=== PATIENT | female | born 1985 | race Caucasian/White ===

== ENCOUNTER 2019-04-29 03:00 | Emergency (ER) | payer MEDICAID, SELFPAY ==
[2019-04-29 03:01] VITALS: BP 153/88; PULSE 118; RESP 15; TEMP 36.7; O2SAT 100; BMI 41.1
[2019-04-29 04:01] LABS: Absolute Lymphocyte Count 1.89 X10^3/uL (0.83-4.51); Absolute Neutrophil Count 3.2 X10^3/uL (2.0-7.7); Basophil# 0.03 X10^3/uL; Basophil% 0.5 % (0-1); Eosinophil# 0.26 X10^3/uL; Eosinophils% 4.5 % (0-5); Hematocrit 37.7 % (37-47); Hemoglobin 11.8 g/dL (12.0-15.0); Lymphocyte # 1.89 X10^3/ul (4.0); Lymphocyte % 32.9 % (19-41); Mean Corp Hgb Conc 31.3 g/dL (32-36); Mean Corpuscular Hgb 27.4 pg (27.0-32.0); Mean Corpuscular Volume 87.7 fL (81-99); Mean Platelet Vol. 9.3 fl (6.2-12.0); Monocyte# 0.36 X10^3/uL; Monocyte% 6.3 % (0-10); NRBC Flagged by Analyzer 0 % (0-5); Neutrophil # 3.19 X10^3/uL (2.7-7.7); Neutrophil % 55.5 % (47-70); Platelet Count 223 K/mm3 (150-450); RBC Distribution Width CV 12.3 % (11.6-14.6); RBC Distribution Width SD 39.8 fl (35.1-43.9); White Blood Count 5.8 K/mm3 (4.4-11.0)
[2019-04-29 04:10] LABS: Anion Gap 3 (5-15); BUN 14 mg/dL (7-18); BUN/Creat Ratio 18.9 RATIO (10-20); Calcium,Total 8.7 mg/dL (8.5-10.1); Chloride 104 mmol/L (98-107); Creatinine, Serum 0.74 mg/dL (0.55-1.02); EST Glomerular Filtration Rate 95 mL/min (>60); Est Glom Filt Rate - Afr Amer 114 mL/min (>60); Estimated Creatinine Clearance 91.63 ml/min; Glucose 93 mg/dL (74-106); Potassium 3.6 mmol/L (3.5-5.1); Sodium Level 139 mmol/L (136-145)
[2019-04-29] MEDS: 0.9% Normal Saline 1,000 ML 150 ML IV (04:11)
[2019-04-29 04:18] LABS: Lactic Acid 1.1 mmol/L (0.4-2.0)
--- NOTE | 2019-04-29 04:23 | ED.VISSUMM ---
- ER Visit Summary Date of Service: 04/29/19 Chief Complaint: [Redness and swelling to both legs] History of Present Illness: The patient is a 33 F [presents to the emergency department with complaint of some swelling in her legs for the last 3 days. This morning she woke up to go to work and noted that she had burning sensation to her skin and her legs were erythematous. Patient denies any fever or chills. She denies any sweats. She does not have a history of cellulitis. She denies any trauma to her lower extremity's. She denies recent travel or surgery. She is not on any control.] Physical Examination: [HEENT-PERRLA, EOMI. Cranial nerves II through XII grossly intact. TMs clear. Mucous membranes moist. No adenopathy. Cardiovascular-regular rate and rhythm without murmur or ectopy Lungs-clear to auscultation, chest wall stable without crepitus or subcu emphysema Abdomen-normoactive bowel sounds, soft, nontender, no rebound or rigidity, no peritoneal signs. Extremities-intact ?4, normal range of motion, normal pulses, atraumatic. Bilateral lower extremities-patient has faint erythema to both lower extremities below the knee to about the foot and ankle. Slight tenderness to the skin on palpation. Trace pretibial edema bilaterally. Negative Homans sign bilaterally. No rubs or cords palpated. She is neurovascular intact.] Test Results: [CBC with differential obtained showed a normal white count of 5.8, hemoglobin 11.8, hematocrit 38, placed 223. Chemistries were normal. Lactate was 1.1. Blood cultures ordered and pending.] Emergency Department Course and Treatment: [She was treated with clindamycin 900 mg IV.] Treatment Plan: [She will be treated with clindamycin. Patient advised to use ibuprofen for discomfort. Patient to follow-up with her primary care physician within the next 3 to 5 days. Patient advised to return if increased redness, fever, increased pain, or conditions worsen anyway.] Disposition: [Discharged home in stable condition] Impression: [Cellulitis bilateral lower extremities] This note was generated with Dr. Jerry's Sm[employer] dictation software. It may contain incorrect words, spelling, and punctuation that were not noted in review of the chart prior to signing ED Disposition - Plan for ED Patient: Referrals: Baldev Snyder DO [Primary Care Provider] -
--- NOTE | 2019-04-29 04:25 | ED.DEP ---
ED Disposition - Plan for ED Patient: Instructions: Cellulitis Prescriptions: Clindamycin HCl [Cleocin] 300 mg PO Q6H #40 cap Prescription Printed Referrals: Baldev Snyder DO [Primary Care Provider] - 3-5 Days
[2019-04-29] MEDS: Ketorolac 30 MG/ML Syringe IV (04:45)
[2019-04-29 05:40] VITALS: BP 149/87; PULSE 78; RESP 18; O2SAT 97
== END 2019-04-29 05:41 | disposition home or self-care (01) ==
PROVIDERS: Emergency Provider Emergency Medicine; Family Provider Student in an Organized Health Care Education/Training Program; PCP Student in an Organized Health Care Education/Training Program
DX: L03.116 Cellulitis of left lower limb (principal); L03.115 Cellulitis of right lower limb
CPT/HCPCS: 80048; 83605; 85025; 87040; 96365; 96375; 99283; J7030; A4216

== ENCOUNTER 2023-08-03 17:04 | Emergency (ER) | payer MEDICAID, SELFPAY ==
[2023-08-03 17:06] VITALS: BP 158/95; PULSE 100; RESP 20; TEMP 36.9; O2SAT 98; BMI 44.1
--- OUTSIDE RECORDS SUMMARY | 2023-08-03 20:17 | XMS RPT_ITS | CCD ---
Author Name Unknown Address [address] [place] [address] Organization [facility] Care Team Providers Care Field Hauler Name Role Phone JESUS SYLVESTER (FRANCHESCA) Unavailable JESUS Gagnon (FRANCHESCA) Unavailable UnavailKash Cavanaugh Unavailable Unavailable Allergies Allergy Classification Reported Allergen(s) Allergy Type Date of Onset Reaction(s) Facility (1 source) sulfamethoxazole ; Translations: [SULFAMETHOXAZOL E] Drug Allergy 04-27-2013 [facility] Repository (1 source) traMADol; Translations: [TRAMADOL HCL] Drug Allergy 06-02-2012 [facility] Repository Problems Active Problems Problem Classification Problem Date Documented Da te Episodic/Chronic Malaise and fatigue (1 source) Other fatigue; Translations: [Other fatigue] Onset: 11-24-2017 Episodic Other connective tissue disease (1 source) Other specified soft tissue disorders; Translations: [Other specified soft tissue disorders] Onset: 11-24-2017 Episodic Unclassified (1 source) Unknown / UNK(Unknown) Onset: 02-09-2017 Past or Other Problems Problem Classification Problem Date Documented Da te Episodic/Chronic Unclassified (1 source) FOLLOW UP Onset: 02-09-2017 Results Test Name Value Interpretation Reference Range Facil ity Encounters Encounter Date Encounter Type Care Provider Facility Start: 11-24-2017 Ambulatory JESUS (FRANCHESCA) [facility] Start: 11-24-2017 End: 11-25-2017 Ambulatory JESUS (FRANCHESCA) [facility] Start: 02-09-2017 Ambulatory Kash Stout Facilit y:[facility] Payers Date Payer Category Payer Policy ID Self-pay Summary Purpose Family History No Family History Records FoundNo Family History Records Found Advance Directives No Advanced Directives Records FoundNo Advanced Directives Records Found Additional Source Comments INFORMATION SOURCE (unrecogn ized section and content) DATE CREATED AUTHOR AUTHOR'S ANMOL POLLACK 12/28/2017 [facility] gretchenlili [place] FOR RECORDS PERTAINING TO PATIENTS WHO ARE OR HAVE BEEN ENROLLED IN A CHEMICAL DEPENDENCY/SUBSTANCEABUSE PROGRAM, SOME INFORMATION MAY BE OMITTED. This clinical summary was aggregated from multiple sources. Caution should be exercised in using it in the provision of clinical care. This summary normalizes information from multiple sources, and as a consequence, information in this document may materially change the coding, format and clinical context of patient data. In addition, data may be omitted in some cases. CLINICAL DECISIONS SHOULD BE BASED ON THE PRIMARY CLINICAL RECORDS. [facility]. provides no warranty or guarantee of the accuracy or completeness of information in this document.
[2023-08-03] MEDS: Amox/Clavulanate 875 MG Tablet PO (20:22)
[2023-08-03] MEDS: HYDROcodone Bitartrate/Apap 5/325 Tablet PO (20:22)
--- NOTE | 2023-08-03 20:26 | EDS_ITS ---
HPI History of Present Illness Chief Complaint: Dental Informant: patient Narrative Narrative: Worsening dental pain since yesterday with sensitivities. Facial swelling. No fevers. States had a root canal in that area in the past however since then has had upper teeth extractions. She cannot tell me when. Currently does not have a dentist. No penicillin allergy. Ibuprofen to take without any relief. Has tolerated [place] in the past. Prior similar symptoms: Yes PFSH PFSH Home Medications amoxicillin 875 mg-potassium clavulanate 125 mg tablet 875 mg (0.875 x 875-125 mg) PO Q12H #20 TABLETS 08/03/23 [Rx Last Taken Unknown] hydrocodone-acetaminophen 5-325mg 5mg-325mg 1 tab PO Q6H PRN PRN Pain 3 days #10 TABLETS 08/03/23 [Rx Last Taken Unknown] Allergy/AdvReac Type Severity Reaction Status Date / Time sulfamethoxazole Allergy Hives Verified 08/03/23 17:06 [From Bactrim] tramadol Allergy Shortness Verified 08/03/23 17:06 of breath trimethoprim [From Bactrim] Allergy Hives Verified 08/03/23 17:06 Social History Smoking Status: Never smoker ROS ROS ED Constitutional Constitutional ED: Denies chills, fever(s) or sweats Eyes Eyes: Denies change in vision ENT ENT ED: Reports other Details: Dental pain with facial swelling. ; Denies dysphagia or sore throat Cardiovascular Cardiovascular: Denies chest pain, leg edema, palpitations or racing heartbeat Respiratory/Chest Respiratory/Chest: Denies cough, dyspnea or dyspnea on exertion Gastrointestinal Gastrointestinal: Denies abdominal pain, diarrhea, nausea or vomiting Genitourinary Genitourinary ED: Denies dysuria, hematuria or urinary frequency Musculoskeletal Musculoskeletal: Denies back pain, extremity pain or neck pain Integumentary Denies rash or wounds Neurologic Neurologic: Denies headache(s), paresthesias or weakness EXAM Physical Exam Const Vital Signs: 08/03/23 17:06 Temperature 98.5 F Temperature Source Temporal Pulse Rate 100 Respiratory Rate 20 H Blood Pressure 158/95 H Blood Pressure Mean 116 Pulse Ox 98 Oxygen Delivery Method Room Air Positive well nourished and well developed General Appearance ED: well developed and NAD HEENT Reports moist mucous membranes HEENT Narrative: Extracted upper tooth, gumline tooth #3 there is DKA into the gumline from a tooth. There was swelling noted in the cheek however no fluctuance. Swelling under the eye with no erythema. No proptosis or entrapment. Airway patent. No trismus. normocephalic and atraumatic Eyes PERRL, EOMs intact bilaterally and conjunctivae normal General Eye ED: Yes normal appearance of both eyes Neck no lymphadenopathy and supple General: Negative for tenderness Chest Wall Chest: Negative for tenderness Resp normal respiratory effort and normal air movement Effort and Inspection: symmetric chest movement; Negative for respiratory d istress Cardio regular rate, regular rhythm and no murmurs Peripheral Pulses: pulses 2+ throughout GI normal to inspection, nondistended, normoactive bowel sounds and non-tender Palpation: Negative for guarding or rebound tenderness present Back/Spine no CVA tenderness and no thoracic nor lumbar tenderness Extremity normal to inspection General Extremety ED: Negative for edema or tenderness General Extremity: Negative for edema Neuro oriented x3 and no sensory deficits noted Sensorium / Orientation: awake and alert Skin no rashes or lesions noted and no wounds MDM MDM MDM Narrative Medical decision making narrative: Interventions / MDM: Differential diagnosis: Dental cavity, facial swelling Diagnosis considered but do not suspect: No clinical fluctuance for concerns for abscess My EKG interpretation: N/A Imaging independently reviewed and interpreted by myself: N/A External documents reviewed: N/A Test considered but not ordered:N/A ED course: Afebrile nontoxic vital signs stable. Due to facial swelling, started on Augmentin. [place] given for send control. Should continue ibuprofen. Short course of pain medicines and antibiotics. Dental list given for follow- up for definitive treatment. All questions were answered. Re-evaluation: stable Disposition discussed with patient/family/significant other: Patient Case discussed with consulting clinician: N/A This note was generated with [employer] dictation software. It may contain incorrect words, spelling, and punctuation that were not noted in checking the note before signing. Discharge Plan Triage Chief Complaint: Dental ED Provider: Milton Hahn Dx/Rx/DC Orders Clinical Impression: Facial swelling, Dental infection Instructions: ED Dental Pain Prescriptions: New hydrocodone-acetaminophen [hydrocodone-acetaminophen] 5-325 mg tablet 1 tab PO Q6H PRN PRN (Reason: Pain) 3 Days Qty: 10 0RF amoxicillin-pot clavulanate [amoxicillin-pot clavulanate] 875-125 mg tablet 875 mg PO Q12H Qty: 20 0RF Primary Care Provider: Care Physician,No Primary Referrals: Care Physician,No Primary [Primary Care Provider] - Activity Restrictions/Additional Instructions: Take antibiotic as prescribed. Continue Motrin 600 mg every 6 hours. Use additional pain medicine as needed. Follow-up with dentist for definitive treatment. Disposition Disposition: Home, Self Care Discharge Date/Time: 08/03/23 20:34
== END 2023-08-03 20:34 | disposition home or self-care (01) ==
PROVIDERS: Emergency Provider Emergency Medicine; Visit Provider Emergency Medicine
DX: K04.7 Periapical abscess without sinus (principal)
CPT/HCPCS: 99283

== ENCOUNTER 2024-09-23 11:39 | Emergency (ER) | payer SELFPAY ==
[2024-09-23 11:40] VITALS: BP 160/94; PULSE 76; RESP 15; TEMP 36.4; O2SAT 100; BMI 38.9
[2024-09-23] MEDS: Ondansetron 4 MG/2 ML Vial IV (12:07)
[2024-09-23] MEDS: 0.9% Normal Saline (1000mL) 1,000 ML 999 ML IV (12:07)
[2024-09-23] MEDS: Morphine 4 MG/ML Syringe IV (12:07)
[2024-09-23 12:44] VITALS: BP 159/88; PULSE 67; RESP 14; TEMP 36.1; O2SAT 98
[2024-09-23] MEDS: Clindamycin 600 MG/50 ML BAG 100 MG IV (12:53)
[2024-09-23 13:00] VITALS: BP 161/90; PULSE 70; RESP 14; TEMP 36.6; O2SAT 98
--- NOTE | 2024-09-23 13:19 | EX.ED.DYSGE1 ---
HPI History of Present Illness Chief Complaint: Dental Narrative Narrative: Patient is a 39-year-old female with no known significant past medical history who presented to the emergency department the chief complaint of dental pain. Patient states that she did a telehealth visit on and they prescribed her Augmentin and ibuprofen. She states that she started taking the antibiotics late Tuesday night morning and feels like the pain has not gotten any better therefore she came here for further evaluation management. Patient states that she has been unable to sleep secondary to the pain. Patient states that she is swallowing without any difficulty. PFSH PFSH Home Medications ?Medication ?Instructions ?Recorded ?Last Taken ?Type amoxicillin 875 mg-potassium 875 mg PO Q12H #20 TABLETS 08/03/23 Unknown Rx clavulanate 125 mg tablet hydrocodone-acetaminophen 5-325mg 1 tab PO Q6H PRN PRN Pain 3 days 08/03/23 Unknown Rx 5mg-325mg #10 TABLETS clindamycin HCl 300 mg capsule 300 mg PO TID 7 days #21 caps 09/23/24 Unknown Rx ondansetron 4 mg disintegrating 4 mg PO Q6H PRN nausea and 09/23/24 Unknown Rx tablet vomiting #30 tabs oxycodone-acetaminophen 5 mg-325 1 tab PO Q6H PRN pain 3 days #12 09/23/24 Unknown Rx mg tablet (Endocet) tabs Allergy/AdvReac Type Severity Reaction Status Date / Time sulfamethoxazole (From Allergy Hives Verified 09/23/24 11:40 Bactrim) tramadol Allergy Shortness Verified 09/23/24 11:40 of breath trimethoprim (From Bactrim) Allergy Hives Verified 09/23/24 11:40 Social History Smoking Status: Never smoker ROS ROS ED ROS Narrative Constitutional: Denies fevers, chills, headaches Eyes, ears, nose, throat: Complains of dental pain as noted above denies any difficulty swallowing Abdomen: Complains of some nausea denies abdominal pain : Denies urinary symptoms Neurological: Denies numbness, weakness, tingling EXAM Physical Exam Narrative Exam Narrative: General: Patient is lying in bed rest comfortably did not appear to be in acute distress Head: Atraumatic, normocephalic Eyes, ears, nose, throat: Patient has poor dentition, patient has tenderness to palpation near the tooth no dental abscess at this point time no fluctuance noted no sublingual swelling noted Neck: Soft, supple, trachea midline, no concern for Antonio's angina Cardiovascular: Regular rate and rhythm Extremities: +5/5 strength noted in the bilateral per lower extremities Neurological: Patient following commands knew that she was at [facility] year is 2024 Skin: Warm, dry, intact no rashes or lesions noted Const Vital Signs: 09/23/24 11:40 09/23/24 12:44 09/23/24 13:00 Temperature 97.5 F L 97 F L 98 F Temperature Source Temporal Temporal Temporal Pulse Rate 76 67 70 Respiratory Rate 15 14 14 Blood Pressure 160/94 H 159/88 H 161/90 H Blood Pressure Mean 116 111 113 Pulse Ox 100 98 98 Oxygen Delivery Method Room Air Room Air Room Air MDM MDM MDM Narrative Medical decision making narrative: Patient is a 39-year-old female who presented to the emergency department the chief complaint of dental pain. On the differential diagnose includes but not limited to periapical abscess although have low suspicion for this, dental cavity. Patient will be given pain medication and Zofran. She will be given a dose of IV clindamycin here in the emergency department. Reevaluated the patient she is feeling better she would like to go home at this point time. Patient with prescription for clindamycin as well as Percocet and Zofran. She is advised to use this for severe pain and use ibuprofen and Tylenol for mild to moderate pain. She was encouraged to follow-up with a dentist she was given a dental referral list. She is encouraged return with worsening symptoms or concerns. She is agreeable this plan all question concerns answered she was discharged home in stable condition. Discharge Plan Triage Chief Complaint: Dental ED Provider: Edmundo Mckeon Dx/Rx/DC Orders Clinical Impression: Pain, dental Prescriptions: New oxycodone-acetaminophen [Endocet] 5-325 mg tablet 1 tab PO Q6H PRN (Reason: pain) 3 Days Qty: 12 0RF clindamycin HCl 300 mg capsule 300 mg PO TID 7 Days Qty: 21 0RF ondansetron 4 mg tablet,disintegrating 4 mg PO Q6H PRN (Reason: nausea and vomiting) Qty: 30 0RF No Action hydrocodone-acetaminophen [hydrocodone-acetaminophen] 5-325 mg tablet 1 tab PO Q6H PRN PRN (Reason: Pain) 3 Days Qty: 10 0RF amoxicillin-pot clavulanate [amoxicillin-pot clavulanate] 875-125 mg tablet 875 mg PO Q12H Qty: 20 0RF Primary Care Provider: Care Physician,No Primary Referrals: Care Physician,No Primary [Primary Care Provider] - Nalini Qiu, [employer] REDEMPTION CLERK-C [[facility]] - Print Language: Syriac
[2024-09-23 14:17] VITALS: BP 144/76; PULSE 74; RESP 20; TEMP 36.2; O2SAT 99
== END 2024-09-23 14:18 | disposition home or self-care (01) ==
PROVIDERS: Emergency Provider Emergency Medicine; Visit Provider Emergency Medicine
DX: K08.89 Other specified disorders of teeth and supporting structures (principal)
CPT/HCPCS: 96365; 96375; 96376; 99282; A4216; J2405